=== PATIENT | male | born 1995 | race Two or more races ===

== ENCOUNTER → 2018-12-27 | Outpatient (CLI) | payer OTHER ==
--- NOTE | 2018-12-27 17:34 | MR ---
EXAMINATION TYPE: MR knee LT wo con DATE OF EXAM: 12/27/2018 COMPARISON: None HISTORY: Lt knee pain, hyperextended knee 1 mo. ago TECHNIQUE: Multiplanar, multisequence imaging of the left knee is performed without IV contrast. FINDINGS: There is a large bone contusion involving the intercondylar notch and medial and lateral ti bial plateaus. There may be a slight depression deformity of the medial tibial plateau. Appears to be adjacent medial femoral bone contusion. Anterior cruciate, posterior cruciate, medial collateral, la teral collateral ligament is intact. Intrasubstance signal the posterior horn the medial meniscus does not extend to the articular surface compatible with myxoid degeneration. No diagnostic evidence of meniscal tear. Patellar cartilage maintained. Retinaculum intact. Patellar and quadriceps tendons intact. Small amou nt of fluid in the suprapatellar bursa. There is a subcentimeter fluid signal posterior to the head o f the left fibula there is a small amount of fluid within the adjacent bursa. IMPRESSION: 1. Large area of bone marrow edema involving the medial and lateral tibial plateau and medial femur. There is a suggestion of a possible subtle deformity of the medial tibial plateau. Differential diag nosis includes bone contusion with microtrabecular fracture. Given the subtle deformity of the medial tibial plateau high-resolution CT scan is recommended to assess for tibial plateau fracture. 2. No evidence of ligamentous or meniscal tear
== END | disposition home or self-care (01) ==
LOC: RADMRIMAIN 16:38
PROVIDERS: ATTEND Orthopaedic Surgery
DX: S82.002A Unspecified fracture of left patella, initial encounter for closed fracture (principal)